=== PATIENT | female | born 1955 | race Caucasian/White ===

== ENCOUNTER 2018-07-06 08:01 | Emergency (ER) | payer BC, OTHER ==
--- NOTE | 2018-07-06 09:06 | RAD REPORT ---
EXAM DESCRIPTION: CT - Ct Stroke Brain Wo Cont - 07/06/2018 8:58 am CLINICAL HISTORY: Left hand numbness COMPARISON: None TECHNIQUE: Computed axial tomography of the head was obtained. IV contrast was not requested. All CT scans are performed using dose optimization technique as appropriate and may include automated exposure control or mA/KV adjustment according to patient size. FINDINGS: An intracranial bleed is not seen . The ventricles are normal in caliber. No extra-axial fluid collection is noted. Partial opacification of maxillary, ethmoid and sphenoid sinus is present compatible with sinusitis IMPRESSION: No acute intracranial abnormality is seen. If patient's symptoms persist MRI of the bra in would be recommended. Exam discussed with Dr Malagon in the emergency room 9 a.m. 07/06/2018
[2018-07-06 09:10] LABS: Absolute Lymphocytes (CBC) 1.8 K/uL (0.7-4.9); Absolute Monocytes 0.4 K/uL (0.1-1.3); Absolute Neutrophil 2.8 K/uL (1.8-8.0); Basophils % 0.5 % (0-1.3); Eosinophils % 5.8 % (0-4.4); Hematocrit 35.2 % (36.0-45.0); Lymphocytes % 33.2 % (15.3-44.8); MCV 90.3 fL (80-100); MPV 7.9 fL (7.6-11.3); Monocytes % 8.4 % (3.3-12.3); RBC Red Blood Cell Count 3.89 M/uL (3.86-4.86)
[2018-07-06 09:17] LABS: Protime INR 0.94
[2018-07-06 09:35] LABS: BUN Blood Urea Nitrogen 15 mg/dL (7-18); Bicarbonate 27 mmol/L (21-32); Glucose Level 93 mg/dL (74-106); Potassium 3.9 mmol/L (3.5-5.1); Sodium Level 142 mmol/L (136-145); Troponin (Emerg Dept Use Only) < 0.02 ng/mL (0.0-0.045)
--- NOTE | 2018-07-06 09:48 | RAD REPORT ---
EXAM DESCRIPTION: MRI - Brain Wo Cont - 07/06/2018 9:31 am CLINICAL HISTORY: Left arm tingling COMPARISON: July 06, [address] TECHNIQUE: Axial, sagittal, and coronal magnetic images of the brain were obtained. Contrast was not requested FINDINGS: Mild to moderate small areas increased signal are present within periventricular, deep and subcortical white matter bilaterally. Diffusion-weighted/ADC mapping does not reveal evidence of acute infarction. The ventricles are normal caliber. An extra-axial fluid collection is not present Marked opacification of ethmoid sinus and right maxillary sinus is seen. Mild mucoperiosteal thickeni ng involves frontal left maxillary and sphenoid sinuses. IMPRESSION: [id number] small areas increased signal within periventricular, deep and subcortic al white matter probably representing ischemic changes secondary to small vessel disease. A demyelina ting process although possible is probably less likely
--- NOTE | 2018-07-06 10:11 | RAD REPORT ---
EXAM DESCRIPTION: RAD - STROKE CXR 1 VIEW - 07/06/2018 9:59 am CLINICAL HISTORY: numbness, left arm COMPARISON: No comparisons FINDINGS: The lungs are clear. The heart is normal in size. Mild degenerative change in both shoulde rs. IMPRESSION: No acute intrathoracic abnormality.
--- NOTE | 2018-07-06 11:13 | ER ---
Nurse's Notes [facility] Name: Emigdio Yun Age: 63 yrs Sex: Female : 1955 Arrival Date: 07/06/2018 Time: 08:05 Bed 15 Private MD: Diagnosis: Paresthesia of skin Presentation: 07/06 08:08 Presenting complaint: Patient states: "I woke with with left arm tingling today". Pt aa5 denies any pain. 08:08 Transition of care: patient was not received from another setting of care. Onset of aa5 symptoms was July 06, 2018. Risk Assessment: Do you want to hurt yourself or someone else? Patient reports no desire to harm self or others. Initial Sepsis Screen: Does the patient meet any 2 criteria? No. Patient's initial sepsis screen is negative. Does the patient have a suspected source of infection? No. Patient's initial sepsis screen is negative. Care prior to arrival: None. 08:08 Method Of Arrival: Ambulatory aa5 08:08 Acuity: INDRA 3 aa5 Triage Assessment: 08:14 General: Appears in no apparent distress. comfortable, Behavior is cooperative, bp appropriate for age, anxious, NO FOCAL NEURO DEFICITS. Historical: - Allergies: 08:10 No Known Allergies; aa5 - PMHx: 08:10 Migraines; Hyperlipidemia; Hypertension; aa5 - PSHx: 08:10 ; Breast biopsy; aa5 - Immunization history:: Adult Immunizations up to date. - Social history:: Smoking status: Patient/guardian denies using tobacco. - Ebola Screening: : No symptoms or risks identified at this time. - Family history:: not pertinent. - Hospitalizations: : No recent hospitalization is reported. Screenin:12 Abuse screen: Denies threats or abuse. Denies injuries from another. Nutritional bp screening: No deficits noted. Tuberculosis screening: No symptoms or risk factors identified. Fall Risk None identified. Assessment: 08:11 General: Appears in no apparent distress. comfortable, Behavior is cooperative, bp appropriate for age, anxious. Pain: Denies pain. 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 Full function Gait is steady, Speech is normal, Facial symmetry appears normal. Cardiovascular: No deficits noted. Respiratory: Airway is patent Respiratory effort is even, unlabored, Respiratory pattern is regular, symmetrical. GI: No signs and/or symptoms were reported involving the gastrointestinal system. : No signs and/or symptoms were reported regarding the genitourinary system. EENT: No deficits noted. Derm: No deficits noted. Musculoskeletal: Circulation, motion, and sensation intact. Range of motion: intact in all extremities. 09:01 Reassessment: Dr. Reece report negative CT. iw 09:55 Reassessment: PT RETURNED FROM RADIOLOGY, ALL CURRENT STUDIES COMPLETED, RESULTS bp PENDING. 11:00 Reassessment: ALL CURRENT STUDIES COMPLETED, DISPO PENDING. bp 11:21 Reassessment: PT D/C HOME AMBULATORY WITH FAMILY, DX WITH PARASTHESIA OF SKIN. bp Vital Signs: 08:10 BP 156 / 84; Pulse 87; Resp 16 S; Pulse Ox 100% on R/A; Weight 59.87 kg (R); Height 5 aa5 ft. 1 in. (154.94 cm) (R); Pain 0/10; 08:11 Temp 98.9; bp 09:55 BP 142 / 101; Pulse 74; Resp 14; Pulse Ox 100% ; bp 11:00 BP 142 / 70; Pulse 74; Resp 14; Pulse Ox 100% ; bp 08:10 Body Mass Index 24.94 (59.87 kg, 154.94 cm) aa5 ED Course: 08:05 Patient arrived in ED. mr 08:08 Wojciech Stein, RN is Primary Nurse. bp 08:08 Arm band placed on Patient placed in an exam room, on a stretcher. aa5 08:12 Triage completed. aa5 08:12 Patient has correct armband on for positive identification. Bed in low position. Call bp light in reach. Side rails up X2. Adult w/ patient. 08:24 Ferdinand Malagon MD is Attending Physician. rn 08:[address] via wheelchair. sj 08:57 Inserted saline lock: 20 gauge in right forearm, using aseptic technique. Blood bp collected. 08:58 CT completed. Patient tolerated procedure well. Patient moved back from CT. sj 09:28 Patient moved to MRI. sj 09:57 X-ray completed. Portable x-ray completed in exam room. Patient tolerated procedure ls3 well. 10:39 Stroke CXR 1 View Sent. bp 10:39 CT Stroke Brain w/o Contrast Sent. bp 10:39 Troponin (emerg Dept Use Only) Sent. bp 10:39 Basic Metabolic Panel Sent. bp 10:39 CBC with Diff Sent. bp 10:39 Ptt, Activated Sent. bp 10:39 Protime (+inr) Sent. bp 11:11 Zion Lowry MD is Referral Physician. rn 11:21 No provider procedures requiring assistance completed. IV discontinued, intact, bp bleeding controlled, No redness/swelling at site. Pressure dressing applied. Administered Medications: No medications were administered Outcome: 11:11 Discharge ordered by MD. rn 11:22 Discharged to home ambulatory, with family. bp 11:22 Condition: stable 11:22 Discharge instructions given to patient, Instructed on discharge instructions, follow up and referral plans. Demonstrated understanding of instructions, follow-up care. 11:22 Patient left the ED. bp Signatures: Tammy Wong Antunez, Abbey Goodwin RN RN iw Ferdinand Malagon MD MD rn Calderon, Audri, RN RN aa5 Wojciech Stein RN RN Celine Blake ls3
--- NOTE | 2018-07-06 11:13 | EDPHYS ---
Physician Documentation [facility] Name: Emigdio Yun Age: 63 yrs Sex: Female : 1955 Arrival Date: 07/06/2018 Time: 08:05 Bed 15 Private MD: ED Physician Ferdinand Malagon HPI: 07/06 09:15 This 63 yrs old Female presents to ER via Ambulatory with complaints of High rn Blood Pressure, Numbness Of Arm. 09:15 The patient has elevated blood pressure and discovered this at home. Onset: The rn symptoms/episode began/occurred this morning. Modifying factors:. Severity of symptoms: At its worst the blood pressure was moderate, in the emergency department the blood pressure is improved. The patient has not experienced similar symptoms in the past. The patient has not recently seen a physician. Reports woke up this morning with left arm tingling, from left elbow to fingers, no weakness, no other focal neurological problems. NO chest pain/headache/nausea/vomiting. . Historical: - Allergies: 08:10 No Known Allergies; aa5 - PMHx: 08:10 Migraines; Hyperlipidemia; Hypertension; aa5 - PSHx: 08:10 ; Breast biopsy; aa5 - Immunization history:: Adult Immunizations up to date. - Social history:: Smoking status: Patient/guardian denies using tobacco. - Ebola Screening: : No symptoms or risks identified at this time. - Family history:: not pertinent. - Hospitalizations: : No recent hospitalization is reported. ROS: 09:15 Constitutional: Negative for fever, chills, and weight loss, Eyes: Negative for injury, rn pain, redness, and discharge, Neck: Negative for injury, pain, and swelling, Cardiovascular: Negative for chest pain, palpitations, and edema, Respiratory: Negative for shortness of breath, cough, wheezing, and pleuritic chest pain, Abdomen/GI: Negative for abdominal pain, nausea, vomiting, diarrhea, and constipation, MS/Extremity: Negative for injury and deformity, Skin: Negative for injury, rash, and discoloration, Neuro: Negative for headache, weakness, and seizure. Exam: 09:15 Constitutional: This is a well developed, well nourished patient who is awake, alert, rn and in no acute distress. Sitting in stretcher upright with legs crossed. Head/Face: Normocephalic, atraumatic. Eyes: Pupils equal round and reactive to light, extra-ocular motions intact. Lids and lashes normal. Conjunctiva and sclera are non-icteric and not injected. Cornea within normal limits. Periorbital areas with no swelling, redness, or edema. Cardiovascular: Regular rate and rhythm with a normal S1 and S2. No gallops, murmurs, or rubs. No pulse deficits. Respiratory: Lungs have equal breath sounds bilaterally, clear to auscultation Abdomen/GI: soft, non-tender MS/ Extremity: Pulses equal, no cyanosis. Neurovascular intact. Full, normal range of motion. Equal circumference. Neuro: Awake and alert, GCS 15, oriented to person, place, time, and situation. Cranial nerves II-XII grossly intact. Motor strength 5/5 in all extremities. Sensory grossly intact. Cerebellar exam normal. Vital Signs: 08:10 BP 156 / 84; Pulse 87; Resp 16 S; Pulse Ox 100% on R/A; Weight 59.87 kg (R); Height 5 aa5 ft. 1 in. (154.94 cm) (R); Pain 0/10; 08:11 Temp 98.9; bp 09:55 BP 142 / 101; Pulse 74; Resp 14; Pulse Ox 100% ; bp 11:00 BP 142 / 70; Pulse 74; Resp 14; Pulse Ox 100% ; bp 08:10 Body Mass Index 24.94 (59.87 kg, 154.94 cm) aa5 MDM: 08:24 Patient medically screened. rn 08:41 ED course: NIH 0. Normal sensation to soft touch and pain LUE, but feels tingling.. rn 08:46 ED course: Pt woke up with symptoms, outside of TPA window, NIH 0, and improving rn symptoms, no TPA indicated. . 09:01 ED course: CT head no acute findings per Dr. Reece.. rn 11:09 Differential diagnosis: Malignant HTN, CVA, intracerebral hemorrhage, TIA. Data rn reviewed: vital signs, nurses notes, lab test result(s), EKG, radiologic studies, CT scan, MRI, and as a result, I will discharge patient. Counseling: I had a detailed discussion with the patient and/or guardian regarding: the historical points, exam findings, and any diagnostic results supporting the discharge/admit diagnosis, lab results, radiology results, the need for outpatient follow up, to return to the emergency department if symptoms worsen or persist or if there are any questions or concerns that arise at home. Response to treatment: the patient's symptoms have resolved after treatment, the patient's condition has returned to base line, the patient is now symptom free, and as a result, I will discharge patient. Special discussion: I discussed with the patient/guardian in detail that at this point there is no indication for admission to the hospital. It is understood, however, that if the symptoms persist or worsen the patient needs to return immediately for re-evaluation. Based on the history and exam findings, there is no indication for further emergent testing or inpatient evaluation. I discussed with the patient/guardian the need to see the corporation pilot for further evaluation of the symptoms. I discussed with the patient/guardian the need to see the neurologist for further evaluation of the symptoms. ED course: Patient now back to baseline, no acute findings on CT brain or MRI brain, nothing to indicate acute stroke, possible TIA, recommend neuro f/u, and cardiology f/u for BP management, and daily aspirin until then. Just had outpt echo and increased her BP meds. Has outpt carotid doppler scheduled. Return precautions and need to return promptly with stroke like symptoms explained and understood.. 07/06 10:37 Order name: Protime (+INR) [facility] 07/06 08:33 Order name: CT Stroke Brain w/o Contrast 07/06 08:33 Order name: Stroke CXR 1 View 07/06 10:37 Order name: CBC with Automated Diff [facility] 07/06 10:37 Order name: PTT, Activated Partial Thromb [facility] 07/06 10:37 Order name: Basic Metabolic Panel [facility] 07/06 10:37 Order name: Troponin (Emerg Dept Use Only) [facility] 07/06 10:46 Order name: CT [facility] 07/06 10:46 Order name: MRI [facility] 07/06 08:33 Order name: EKG; Complete Time: 10:36 rn 07/06 08:33 Order name: Accucheck; Complete Time: 08:57 rn 07/06 08:33 Order name: Cardiac monitoring; Complete Time: 08:57 rn 07/06 08:33 Order name: EKG - Nurse/Tech; Complete Time: 08:57 rn 07/06 08:33 Order name: IV Saline Lock; Complete Time: 08:57 rn 07/06 08:33 Order name: Labs collected and sent; Complete Time: 08:57 rn 07/06 08:33 Order name: NPO; Complete Time: 08:57 rn 07/06 08:33 Order name: O2 Per Protocol; Complete Time: 08:57 rn 07/06 08:33 Order name: O2 Sat Monitoring; Complete Time: 08:57 rn 07/06 10:47 Order name: RAD EDMS 07/06 11:12 Order name: EKG Electrocardiogram; Complete Time: 11:21 EDMS Administered Medications: No medications were administered Disposition: 07/06/18 11:11 Discharged to Home. Impression: Paresthesia of skin. - Condition is Stable. - Discharge Instructions: Paresthesia. - Medication Reconciliation Form, Thank You Letter, Antibiotic Education, Prescription Opioid Use form. - Follow up: Zion Lowry MD; When: As needed; Reason: Recheck today's complaints, Re-evaluation by your physician. - Problem is new. - Symptoms have improved. Signatures: Dispatcher [employer] EDDE Ferdinand Malagon MD MD rn Calderon, Audri, RN RN aa5 Wojciech Stein RN RN bp Corrections: (The following items were deleted from the chart) 11:22 11:11 07/06/2018 11:11 Discharged to Home. Impression: Paresthesia of skin. Condition bp is Stable. Forms are Medication Reconciliation Form, Thank You Letter, Antibiotic Education, Prescription Opioid Use. Follow up: Zion Lowry; When: As needed; Reason: Recheck today's complaints, Re-evaluation by your physician. Problem is new. Symptoms have improved. rn
--- NOTE | 2018-07-06 15:20 | EKG ---
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
== END 2018-07-06 11:22 | disposition home or self-care (01) ==
LOC: ER 08:01
DX: R20.2 Paresthesia of skin (principal); I10 Essential (primary) hypertension
CPT/HCPCS: 36415; 70450; 70551; 71045; 80048; 84484; 85025; 85610; 85730; 93005; 99284